=== PATIENT | male | born 1935 | race Hispanic/Latino ===

== ENCOUNTER → 2020-05-05 | Outpatient (CLI) | payer MEDICARE | END | disposition home or self-care (01) | LOC: RAH 10:19 | PROVIDERS: ATTEND Family Medicine | DX: G93.89 Other specified disorders of brain (principal); I65.23 Occlusion and stenosis of bilateral carotid arteries; R26.0 Ataxic gait | CPT/HCPCS: 70551; 93880 ==

== ENCOUNTER 2020-06-03 09:57 | Emergency (ER) | payer MEDICARE ==
[2020-06-03] MEDS ORDERED: MORPHINE SULFATE 2 MG/ML 1ML SYG ONE (14:56)
== END 2020-06-03 14:24 | disposition home or self-care (01) ==
LOC: EDH 09:57
DX: G93.89 Other specified disorders of brain (principal); E11.9 Type 2 diabetes mellitus without complications; I10 Essential (primary) hypertension; E78.00 Pure hypercholesterolemia, unspecified; Z72.0 Tobacco use
CPT/HCPCS: 99281